=== PATIENT | female | born 1955 | race African-American/Black ===

== ENCOUNTER 2018-11-04 20:47 | Observation (INO) | payer MEDICARE, MEDICAID ==
[2018-11-04 21:22] LABS: Bilirubin Negative (Negative); Blood, Urine Negative (Negative); Clarity Clear (Clear); Glucose, Urine (Dipstick) Normal (Negative); Leukocyte Negative Leu/uL (Negative); Nitrite Negative (Negative); Protein, Urine (Dipstick) Negative (Neg-Trace); Urobilinogen Normal mg/dL (Less than 2)
[2018-11-04] MEDS ORDERED: Furosemide 40 MG/4 ML VIAL ONE (22:36)
[2018-11-04] MEDS ORDERED: Aspirin Chewable 81 MG TAB ONE (22:36)
[2018-11-04] MEDS ORDERED: Nitroglycerin 2% Ointment 1 INCH/1 GM Packet ONE (22:36)
[2018-11-04] MEDS ORDERED: Morphine 4 MG/ML VIAL ONE (22:36)
[2018-11-04] MEDS ORDERED: Acetaminophen 650 MG Suppository PR PRN (23:11)
[2018-11-04] MEDS ORDERED: Ondansetron ODT 4 MG TAB PO PRN (23:11)
[2018-11-04] MEDS ORDERED: Dextrose 50% Abboject 50 ML SYRINGE SLOW IVP PRN (23:13)
[2018-11-04] MEDS ORDERED: Dextrose 5% in Water 1,000 ML IV PRN (23:13)
[2018-11-04] MEDS ORDERED: Insulin Glargine 21 UNITS in Pre-Filled Syringe 1 EACH SC SCH (23:15)
[2018-11-05 01:28] VITALS: BMI 36.8
[2018-11-05 03:29] LABS: #Eosinphils 0.1 thou/uL (0.0-0.7); #Lymphocytes 1.3 thou/uL (1.20-3.40); #Monocytes 0.6 thou/uL (0.11-0.59); #Neutrophils 3.7 thou/uL (1.40-6.50); %Basophils 0.4 % (0.0-1.0); %Eosinophils 1.3 % (0.0-10.0); %Lymphocytes 22.8 % (21.0-51.0); %Monocytes 10.7 % (0.0-10.0); %Neutrophils 64.7 % (42.0-75.0); Hemoglobin 9.1 g/dL (12.0-16.0); Mean Corpuscular HGB CONC 32.7 g/dL (32.0-36.0); Mean Corpuscular Hemoglobin 29.3 pg (27.0-31.0); Mean Corpuscular Volume 89.8 fL (78.0-98.0); Mean Platelet Volume 8.9 fL (7.4-10.4); Platelet Count 173 thou/uL (130-400); RBC Distribution Width 12.3 % (11.5-14.5); White Blood Cell (WBC) Count 5.7 thou/uL (4.8-10.8)
[2018-11-05 03:49] LABS: Anion Gap 13 mmol/L (10-20); BUN (Urea Nitrogen) 40 mg/dL (9.8-20.1); Calc. Creatinine Clearance 45 mL/min (70-130); Calcium 9.6 mg/dL (7.8-10.44); Carbon Dioxide 25 mmol/L (23-31); Chloride 106 mmol/L (98-107); Estimated GFR-MDRD 31; Glucose 270 mg/dL (80-115); Potassium 5.2 mmol/L (3.5-5.1); Sodium 139 mmol/L (136-145)
[2018-11-05] MEDS: Acetaminophen 325 MG TAB PO PRN ×4 (04:40→22:57)
[2018-11-05] MEDS: HumaLOG 300 UNITS/3 ML VIAL SC PRN ×4 (06:31→21:11)
[2018-11-05] MEDS: Furosemide 40 MG/4 ML VIAL SLOW IVP SCH ×2 (06:32→15:32)
--- NOTE | 2018-11-05 07:32 | HP ---
PRIMARY CARE DOCTOR: Germaine Phelps MD CODE STATUS: Full code. TIME OF EVALUATION: 2300 hours. CHIEF COMPLAINT: The patient came after having a fall. HISTORY OF PRESENT ILLNESS: A 63-year-old female with past medical history of diabetes type 2, hyperlipidemia, hypertension, asthma, came to the hospital after having a fall. 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 She cannot associate it with any loss of consciousness, with no clear triggers, no alleviating factors. The patient also was found to have significant fluid overload with significant bilateral leg edema, PND. The symptoms have been present especially for the past 2 weeks and have been gradually getting worse. Of note, the patient has been following with for the kidney problems, has never been offered dialysis. Also reported that she has been on Lasix p.r.n., will need to be given when necessary due to gradual kidney function worsening. The patient also has some associated back pain, reported it was severe when present and associated with shortness of breath and wheezing. PAST MEDICAL HISTORY: Positive for diabetes type 2, hyperlipidemia, hypertension, asthma. PAST SURGICAL HISTORY: Cholecystectomy, hysterectomy, tonsillectomy. PSYCHIATRIC HISTORY: Depression. FAMILY HISTORY: Reviewed and non contributory for current presentation. SOCIAL HISTORY: No alcohol use. No drug use. No smoking history. KNOWN ALLERGIES: To penicillin. REPORTED MEDICATIONS: The patient reported; 1. Levemir. 2. NovoLog. 3. Furosemide, only when needed. PHYSICAL EXAMINATION: VITAL SIGNS: On presentation, blood pressure 140/71 with heart rate 72, respiratory rate was 18, temperature 99, oxygen saturation was 92% on room air. GENERAL APPEARANCE: The patient is alert, oriented, no acute distress. HEENT: Eyes, normal conjunctivae, moist oral mucosa. Anicteric. No JVD. RESPIRATORY: Bilateral air entry. No rales. No wheezes. Symmetric expansion. CARDIOVASCULAR: Normal rate, regular rhythm. No murmurs. No gallop. Bilateral leg edema. ABDOMEN: Soft, normal bowel sounds. MUSCULOSKELETAL: Baseline range of motion and strength. SKIN: Warm and intact. No pallor. No rash. No redness. Capillary refill seems to be intact. NEURO: No evidence of any new focal weakness. Cranial nerves seem to be intact. PSYCH: The patient is in good mood. No anxiety. Optimal judgment. IMAGING: EKG was reviewed. The patient has normal sinus rhythm with a rate of 73 with possible anterior infarct. LABORATORY DATA: Labs are in the paper chart. The patient has increased creatinine, but this is a chronic problem. Baseline creatinine was in the range of 1.82. Troponin, initial was negative, the second one was 0.031. ASSESSMENT AND PLAN: The patient will be placed in the hospital with following medical problems. 1. Fluid overload, could be a combination of chronic kidney disease and underlying congestive heart failure, however, the last echo done in 2017 did not show congestive heart failure. We will repeat kidney function in the morning. The patient has been given Lasix in the ER. We will continue for now. If not improving or kidney function is worsening, might need assistance from Nephrology. 2. Mildly elevated troponin. Troponin is 0.03, could be secondary to possible underlying congestive heart failure. We will do echo acute coronary syndrome. Reconcile home medications. 3. History of diabetes, reconcile home medications, sliding scale for optimal control. 4. Uncontrolled blood pressure and systolic blood pressure of 52 once during presentation. Reconcile home medications, adjust treatment as needed. 5. Chronic kidney disease. Treatment as above. 6. Hyperlipidemia. Low-cholesterol diet is advised. Reconcile home medications. 7. Deep venous thrombosis prophylaxis. Job ID: [id number] [facility]
[2018-11-05] MEDS: Carvedilol 6.25 MG TAB PO SCH ×2 (08:33→20:44)
[2018-11-05] MEDS: Amlodipine 5 MG TAB PO SCH (08:33)
[2018-11-05] MEDS: Lisinopril 5 MG TAB PO SCH (08:34)
[2018-11-05] MEDS: PARoxetine 20 MG TAB PO SCH (08:34)
[2018-11-05] MEDS: Enoxaparin Sodium 40 MG/0.4 ML SYRINGE SC SCH (08:34)
[2018-11-05] MEDS: Ferrous Sulfate 325 MG TAB PO SCH (08:34)
[2018-11-05] MEDS: Clopidogrel Bisulfate 75 MG TAB PO SCH (08:34)
[2018-11-05] MEDS ORDERED: ICOSAPENT ETHYL 2 GM PO SCH (09:00)
--- NOTE | 2018-11-05 17:01 | PDOC.HOSPP ---
- Subjective Encounter Date: 11/05/18 Encounter Time: 10:45 Subjective: Ms. Bermeo was seen today in follow-up of syncope and CHF. She does not have any new complaints. She says she is breathing better. Her daughter is at the bedside and tells me that every sice she was placed on Gabapentin, she has been drowsy and experiencing falls. She believes the dose is too high. The patient says she was prescribed 300mg and she was instructed to increase it to 2 pills a days if needed. She does admit to feeling short of breath the past few days but had attributed it to asthma. - Objective Vital Signs & Weight: Vital Signs (12 hours) Temp Pulse Resp BP BP Pulse Ox 11/05/18 16:00 98.2 F 63 20 123/60 94 L 11/05/18 11:09 98.4 F 76 18 116/57 L 93 L 11/05/18 08:34 80 124/56 L 11/05/18 08:33 80 124/56 L 11/05/18 07:26 98.8 F 80 18 124/56 L 92 L Weight Admit Weight 215 lb Weight 215 lb I&O: 11/04/18 11/05/18 11/06/18 06:59 06:59 06:59 Intake Total 254 Output Total 1100 Balance -846 Result Diagrams: 11/05/18 03:22 11/05/18 03:22 Additional Labs: Accuchecks 11/05/18 11/05/18 11/05/18 10:33 06:30 00:10 POC Glucose 294 H 315 H 140 H 11/04/18 22:43 POC Glucose 115 H Hospitalist ROS - Medication Medications: Active Medications Generic Name Dose Route Start Last Admin Trade Name Freq PRN Reason Stop Dose Admin Acetaminophen 650 mg 11/04/18 23:11 11/05/18 08:37 Tylenol PO 650 mg Q4H PRN Administration Headache/Fever/Mild Pain (1-3) Amlodipine Besylate 5 mg 11/05/18 09:00 11/05/18 08:33 Norvasc PO 5 mg DAILY RAMIN Administration Carvedilol 12.5 mg 11/05/18 09:00 11/05/18 08:33 Coreg PO 12.5 mg BID RAMIN Administration Clopidogrel Bisulfate 75 mg 11/05/18 09:00 11/05/18 08:34 Plavix PO 75 mg DAILY RAMIN Administration Enoxaparin Sodium 40 mg 11/05/18 09:00 11/05/18 08:34 Lovenox SC 40 mg 0900 RAMIN Administration Ferrous Sulfate 325 mg 11/05/18 09:00 11/05/18 08:34 Feosol PO 325 mg DAILY RAMIN Administration Furosemide 40 mg 11/05/18 06:00 11/05/18 15:32 Lasix SLOW IVP 40 mg 0600,1400 RAMIN Administration Insulin Human Lispro 0 units 11/04/18 23:13 11/05/18 11:56 Humalog SC 4 unit .MILD SLIDING SCALE PRN Administration Mild Correctional Scale Lisinopril 5 mg 11/05/18 09:00 11/05/18 08:34 Zestril PO 5 mg DAILY RAMIN Administration Paroxetine HCl 20 mg 11/05/18 09:00 11/05/18 08:34 Paxil PO 20 mg DAILY RAMIN Administration Ranolazine 500 mg 11/05/18 09:00 11/05/18 08:34 Ranexa PO 500 mg BID RAMIN Administration - Exam Eye: PERRL Heart: RRR, no murmur, no gallops, no rubs, normal peripheral pulses Respiratory: CTAB (with the excception of an occasional rale), no wheezes, no ronchi, normal chest expansion Gastrointestinal: soft, non-tender, non-distended, normal bowel sounds, no palpable masses, no hepatomegaly, no splenomegaly Hosp A/P (1) Syncope Code(s): R55 - SYNCOPE AND COLLAPSE Status: Acute (2) Chronic pain Code(s): G89.29 - OTHER CHRONIC PAIN Status: Acute (3) Obesity (BMI 30-39.9) Code(s): E66.9 - OBESITY, UNSPECIFIED Status: Chronic (4) CAD (coronary artery disease) Code(s): I25.10 - ATHSCL HEART DISEASE OF [place] CORONARY ARTERY W/O ANG PCTRS Status: Chronic (5) Diabetes type 2, controlled Code(s): E11.9 - TYPE 2 DIABETES MELLITUS WITHOUT COMPLICATIONS Status: Chronic - Plan * Syncope- I suspect this may be due to orthostasis- she has had a work-up in the recent past for similar situation, and it was attributed to this * Will reduce her dose of Gabapentin as well * CHF exacerbation- her last Echo was in 2016, and at that time her EF was normal- will repat this during this hospital stay due to her symptoms * HTN- blood pressure is stable * DM- blood glucose is a bit elevated- continue SSI, and will add a low dose Lantus this evening
[2018-11-05] MEDS: Rosuvastatin 20 MG TAB PO SCH (20:44)
[2018-11-05] MEDS ORDERED: Insulin Glargine 21 UNITS in Pre-Filled Syringe 1 EACH SC SCH ×2 (21:00→22:15)
[2018-11-06] MEDS: Furosemide 40 MG/4 ML VIAL SLOW IVP SCH ×2 (06:04→13:15)
[2018-11-06] MEDS: Amlodipine 5 MG TAB PO SCH (09:11)
[2018-11-06] MEDS: Clopidogrel Bisulfate 75 MG TAB PO SCH (09:12)
[2018-11-06] MEDS: Ferrous Sulfate 325 MG TAB PO SCH (09:12)
[2018-11-06] MEDS: Lisinopril 5 MG TAB PO SCH (09:12)
[2018-11-06] MEDS: Carvedilol 6.25 MG TAB PO SCH ×2 (09:12→20:27)
[2018-11-06] MEDS: PARoxetine 20 MG TAB PO SCH (09:12)
[2018-11-06] MEDS: Enoxaparin Sodium 40 MG/0.4 ML SYRINGE SC SCH (09:13)
[2018-11-06] MEDS: Insulin Glargine 5 UNITS in Pre-Filled Syringe SC SCH (09:13)
[2018-11-06] MEDS: Acetaminophen 325 MG TAB PO PRN ×3 (09:19→21:33)
[2018-11-06] MEDS: HumaLOG 300 UNITS/3 ML VIAL SC PRN ×3 (11:00→20:28)
--- NOTE | 2018-11-06 19:13 | ULT ---
EXAM: Carotid ultrasound HISTORY: Syncope COMPARISON: 08/04/2012 TECHNIQUE: Multiplanar grayscale and color Doppler images were obtained in a carotid ultrasound. Spec tral analysis of the Doppler waveforms were performed. FINDINGS: Calcified plaque is seen stranding both carotid bifurcations. The Doppler waveforms are normal in the visualized vessels. Peak systolic velocity in the right internal carotid artery 221 cm/s. Peak systolic velocity in the right common carotid artery 121 cm/s. The right ICA/CCA ratio is 1.8. Peak systolic velocity in the left internal carotid artery 192 cm/s. Peak systolic velocity in the left common carotid artery 173 cm/s. The left ICA/CCA ratio is 1.1. The left vertebral artery was not visualized. The right vertebral artery demonstrates antegrade flow. IMPRESSION: Moderate stenosis of 50-69% per velocity criteria in the bilateral internal carotid arteries.
[2018-11-06] MEDS: Rosuvastatin 20 MG TAB PO SCH (20:27)
[2018-11-06] MEDS ORDERED: INSULIN DETEMIR 21 UNIT SQ SCH (21:00)
[2018-11-06] MEDS ORDERED: Insulin Glargine 21 UNITS in Pre-Filled Syringe 1 EACH SC SCH (21:00)
[2018-11-06] MEDS ORDERED: Famotidine 20 MG TAB PO SCH (21:00)
--- NOTE | 2018-11-06 23:22 | PDOC.HOSPP ---
- Subjective Encounter Date: 11/06/18 Encounter Time: 18:25 Subjective: f/u for syncopal episode and fall. States was picking up pills she had dropped at home when she fell over and had +LOC. - Objective Vital Signs & Weight: Vital Signs (12 hours) Temp Pulse Resp BP BP BP BP 11/06/18 19:52 98.3 F 78 20 119/55 L 135/60 134/63 11/06/18 14:30 98.4 F 65 14 126/61 Pulse Ox 11/06/18 19:52 94 L 11/06/18 14:30 95 Weight Admit Weight 215 lb Weight 213 lb 3 oz I&O: 11/05/18 11/06/18 11/07/18 06:59 06:59 06:59 Intake Total 254 1220 700 Output Total 1100 2200 1999 Balance -166 -980 -1300 Result Diagrams: 11/05/18 03:22 11/05/18 03:22 Additional Labs: Accuchecks 11/06/18 11/06/18 11/06/18 20:29 16:48 10:49 POC Glucose 224 H 212 H 287 H 11/06/18 11/06/18 06:14 02:06 POC Glucose 172 H 121 H Radiology Reviewed by me: Yes (Carotid sono - mod stenosis bilat carotids 50-69% ) EKG Reviewed by me: Yes (Tele - SR) Hospitalist ROS - Medication Medications: Active Medications Generic Name Dose Route Start Last Admin Trade Name Freq PRN Reason Stop Dose Admin Acetaminophen 650 mg 11/04/18 23:11 11/06/18 21:33 Tylenol PO 650 mg Q4H PRN Administration Headache/Fever/Mild Pain (1-3) Amlodipine Besylate 5 mg 11/05/18 09:00 11/06/18 09:11 Norvasc PO 5 mg DAILY RAMIN Administration Carvedilol 12.5 mg 11/05/18 09:00 11/06/18 20:27 Coreg PO 12.5 mg BID RAMIN Administration Clopidogrel Bisulfate 75 mg 11/05/18 09:00 11/06/18 09:12 Plavix PO 75 mg DAILY RAMIN Administration Enoxaparin Sodium 40 mg 11/05/18 09:00 11/06/18 09:13 Lovenox SC 40 mg 09 RAMIN Administration Famotidine 40 mg 11/06/18 21:00 11/06/18 20:27 Pepcid PO 40 mg HS RAMIN Administration Ferrous Sulfate 325 mg 11/05/18 09:00 11/06/18 09:12 Feosol PO 325 mg DAILY RAMIN Administration Furosemide 40 mg 11/05/18 06:00 11/06/18 13:15 Lasix SLOW IVP 40 mg 0600,1400 RAMIN Administration Insulin Glargine 5 units/ 0.05 mls @ 0 mls/hr 11/06/18 09:00 11/06/18 09:13 Miscellaneous Medication SC 0.05 mls QAM RAMIN Administration Insulin Glargine 21 units/ 0.21 mls @ 0 mls/hr 11/06/18 21:00 11/06/18 20:28 Miscellaneous Medication SC 0.21 mls HS RAMIN Administration Insulin Human Lispro 0 units 11/04/18 23:13 11/06/18 16:46 Humalog SC 3 unit .MILD SLIDING SCALE PRN Administration Mild Correctional Scale Insulin Human Lispro 0 units 11/05/18 19:57 11/06/18 20:28 Humalog SC 2 unit .BEDTIME SLIDING SC PRN Administration Bedtime Correctional Scale Lisinopril 5 mg 11/05/18 09:00 11/06/18 09:12 Zestril PO 5 mg DAILY RAMIN Administration Paroxetine HCl 20 mg 11/05/18 09:00 11/06/18 09:12 Paxil PO 20 mg DAILY RAMIN Administration Ranolazine 500 mg 11/05/18 09:00 11/06/18 20:27 Ranexa PO 500 mg BID RAMIN Administration Rosuvastatin Calcium 20 mg 11/05/18 21:00 11/06/18 20:27 Crestor PO 20 mg HS RAMIN Administration - Exam General Appearance: NAD, awake alert Eye: PERRL, anicteric sclera ENT: normocephalic atraumatic, no oropharyngeal lesions, dry oral mucosa Neck: supple, symmetric, no JVD, no thyromegaly, no lymphadenopathy Heart: RRR, no gallops, no rubs Respiratory: CTAB, no wheezes, no rales, no ronchi, normal chest expansion Gastrointestinal: soft, non-tender, non-distended, normal bowel sounds, no palpable masses Extremities: no cyanosis, no edema Skin: normal turgor, no lesions Neurological: cranial nerve grossly intact, no focal deficits, no new deficit Musculoskeletal: normal tone, normal strength Psychiatric: normal affect, A&O x 3 Hosp A/P (1) Syncope Code(s): R55 - SYNCOPE AND COLLAPSE Status: Acute Plan: Mod stenosis of bilat carotid arteries not amenable to acute intervention (2) Acute kidney failure Status: Acute Plan: ?Slight increased creatinine, continue low-volume IVF's, avoid nephrotoxic meds and limit contrast (3) Anemia Code(s): D64.9 - ANEMIA, UNSPECIFIED Status: Chronic Plan: Appears anemia in CKD and in context of chronic disease (4) Diabetes type 2, controlled Code(s): E11.9 - TYPE 2 DIABETES MELLITUS WITHOUT COMPLICATIONS Status: Chronic Plan: Stable currently, continue ISS, Continue Levemir - Plan plan discussed w/ family, PT/OT, social insurance analyst, out of bed/ambulate, DVT proph w/SCDs Stable currently Continue dual antiplatelet function Resume home BP regimen 2D echo pending AM lab: BMP, CBC Likely home in 24h
[2018-11-07 04:52] LABS: Band 1 % (5-11); Eosinophils 1 % (0-10); Hemoglobin 9.7 g/dL (12.0-16.0); Lymphocytes 52 % (21-51); MDiff Complete? YES; Mean Corpuscular HGB CONC 33.9 g/dL (32.0-36.0); Mean Corpuscular Hemoglobin 30.2 pg (27.0-31.0); Mean Platelet Volume 9.1 fL (7.4-10.4); Monocytes 6 % (0-10); Neutrophil 40 % (42-75); Platelet Count 195 thou/uL (130-400); Platelet Morphology Comment Appears Adequate; Red Blood Cell (RBC) Count 3.23 mill/uL (4.20-5.40); White Blood Cell (WBC) Count 3.3 thou/uL (4.8-10.8)
[2018-11-07 04:55] LABS: Anion Gap 14 mmol/L (10-20); BUN (Urea Nitrogen) 39 mg/dL (9.8-20.1); Calc. Creatinine Clearance 49 mL/min (70-130); Calcium 9.9 mg/dL (7.8-10.44); Carbon Dioxide 28 mmol/L (23-31); Chloride 103 mmol/L (98-107); Estimated GFR-MDRD 34; Glucose 102 mg/dL (80-115); Potassium 4.4 mmol/L (3.5-5.1); Sodium 141 mmol/L (136-145)
[2018-11-07] MEDS: Furosemide 40 MG/4 ML VIAL SLOW IVP SCH (06:05)
[2018-11-07] MEDS ORDERED: Aspirin Chewable 81 MG TAB PO SCH (09:00)
[2018-11-07] MEDS: Insulin Glargine 5 UNITS in Pre-Filled Syringe SC SCH (10:38)
[2018-11-07] MEDS: Clopidogrel Bisulfate 75 MG TAB PO SCH (10:39)
[2018-11-07] MEDS: Lisinopril 5 MG TAB PO SCH (10:39)
[2018-11-07] MEDS: Acetaminophen 325 MG TAB PO PRN (10:39)
[2018-11-07] MEDS: PARoxetine 20 MG TAB PO SCH (10:40)
[2018-11-07] MEDS: Amlodipine 5 MG TAB PO SCH (10:40)
[2018-11-07] MEDS: Carvedilol 6.25 MG TAB PO SCH (10:40)
[2018-11-07] MEDS: Ferrous Sulfate 325 MG TAB PO SCH (10:40)
[2018-11-07] MEDS: Enoxaparin Sodium 40 MG/0.4 ML SYRINGE SC SCH (10:40)
[2018-11-07 11:38] VITALS: TEMP 97.8
[2018-11-07 12:28] VITALS: BP 124/60
--- NOTE | 2018-11-07 18:38 | DIS ---
DATE OF ADMISSION: 11/04/2018 DATE OF DISCHARGE: 11/07/2018 DISCHARGE DIAGNOSES: 1. Syncope, likely multifactorial. 2. Acute kidney injury, mild, resolved. 3. Anemia of chronic kidney disease. 4. Diabetes mellitus type 2, insulin requiring. 5. Deconditioning. 6. Carotid artery disease, moderate. Medical management. CONSULTATIONS: None. PERTINENT LABORATORY AND X-RAY FINDINGS: Creatinine ranged between 1.82 to 1.99. Estimated GFR ranged between 31 to 34. Troponin I ranged between 0.011 to 0.031. CBC showed a hemoglobin ranging between 9.1 to 9.7. 2D transthoracic echocardiogram dated 11/06/2018, showed ejection fraction of 60% to 65%. Mild tricuspid valve regurgitation. Carotid Doppler study dated 11/06/2018, showed moderate stenosis of bilateral carotid artery system, 50% to 69% with no hemodynamically significant stenosis. HOSPITAL COURSE: The patient was observed on the telemetry unit after initially presenting status post syncopal episode. The patient underwent extensive evaluation including neuroimaging showing no acute intracranial process. Screening metabolic survey showed mild elevation of the creatinine, receiving intravenous fluids. The patient received general supportive management, undergoing a carotid Doppler study and 2D transthoracic echocardiogram as stated previously. Telemetry monitoring showed sinus mechanism without evidence of acute arrhythmia or dysrhythmia. The patient's presentation likely due to polypharmacy in conjunction with mild orthostatic changes. The patient cautioned regarding ambulating with the use of a rolling walker and positional changes at home. Overall, the patient remained clinically stable during the hospital course, tolerating regular oral intake and ambulating with physical therapy. I have examined the patient at the time of discharge and discussed followup instructions. The patient verbalized understanding and in agreement, ready for discharge on 11/07/2018. DISCHARGE MEDICATIONS: 1. Enteric-coated aspirin 81 mg p.o. daily. 2. Carvedilol 12.5 mg p.o. b.i.d. 3. Ferrous sulfate 324 mg p.o. daily. 4. Vascepa 2 g p.o. b.i.d. 5. Levemir 21 units subcutaneously at bedtime. 6. Paroxetine 20 mg p.o. daily. 7. Ranitidine 300 mg p.o. at bedtime. 8. Crestor 20 mg p.o. daily. 9. Amlodipine 5 mg p.o. daily. 10. Plavix 75 mg p.o. daily. 11. Lisinopril 5 mg p.o. daily. 12. Ranexa 500 mg p.o. b.i.d. 13. NovoLog FlexPen sliding scale t.i.d. with meals. FOLLOWUP: The patient may follow up with her primary care provider, Dr. Jacky Mark in [place]. The patient may follow up with Dr. Germaine Phelps with [facility]. The patient given referral to see outpatient Endocrinology with Dr. Syd Saenz with [facility]. CONDITION ON DISCHARGE: Stable. ACTIVITY: Ad-partha. DIET: Heart healthy and ADA. CODE STATUS: Full. DISPOSITION: Home on 11/07/2018. Job ID: [id number]
--- NOTE | 2018-11-08 13:55 | EKG ---
Test Reason : Blood Pressure : / mmHG Vent. Rate : 073 BPM Atrial Rate : 073 BPM P-R Int : 142 ms QRS Dur : 080 ms QT Int : 380 ms P-R-T Axes : 053 023 012 degrees QTc Int : 418 ms Normal sinus rhythm Possible Anterior infarct , age undetermined Abnormal ECG Confirmed by YARIEL NAGEL MD ([id number]), video editor DENISSE CUETO ([id number]) on 11/08/2018 1:54:29 PM Referred By: Confirmed By:YARIEL NAGEL MD
== END 2018-11-07 13:51 | disposition home or self-care (01) ==
LOC: ERS 20:47 → 2SW 23:02
PROVIDERS: ADMIT Hospitalist; ATTEND Hospitalist
DX: R55 Syncope and collapse (principal); I13.0 Hypertensive heart and chronic kidney disease with heart failure and stage 1 through stage 4 chronic kidney disease, or unspecified chronic kidney disease; E11.22 Type 2 diabetes mellitus with diabetic chronic kidney disease; N18.9 Chronic kidney disease, unspecified; I50.9 Heart failure, unspecified; N17.9 Acute kidney failure, unspecified; D63.1 Anemia in chronic kidney disease; G89.29 Other chronic pain; I25.10 Atherosclerotic heart disease of native coronary artery without angina pectoris; J45.909 Unspecified asthma, uncomplicated; F32.9 Major depressive disorder, single episode, unspecified; R79.89 Other specified abnormal findings of blood chemistry; I65.23 Occlusion and stenosis of bilateral carotid arteries; E66.9 Obesity, unspecified; Z68.36 Body mass index [BMI] 36.0-36.9, adult; Z79.4 Long term (current) use of insulin; Z79.82 Long term (current) use of aspirin; Z79.899 Other long term (current) drug therapy; Z88.0 Allergy status to penicillin
CPT/HCPCS: 36415; 36416; 80048; 81003; 82553; 84484; 85007; 85025; 85027; 93005; 93306; 93880; 96372; 96374; 96375; 96376; G0378; J1650; J1815; J1940; J2270